=== PATIENT | female | born 1985 ===

== ENCOUNTER 2016-11-30 17:28 | Emergency (ER) | payer OTHER ==
[~2016-11-30] VITALS: Ht 154.9 cm; Wt 65.3 kg
--- NOTE | 2016-11-30 18:33 | ED NEURO DEFICIT/STROKE ---
History of Present Illness General Chief Complaint: General Adult Stated Complaint: RT SIDED NUMBNESS ?NEW MED RX Source: patient, old records Exam Limitations: no limitations Vital Signs & Intake/Output Vital Signs & Intake/Output Vital Signs Date Time Temp Pulse Resp B/P B/P Pulse O2 O2 Flow FiO2 Mean Ox Delivery Rate 12/01 2123 96.8 69 18 118/78 99 Room Air 11/30 1948 95.6 71 16 110/74 99 Room Air 11/30 1730 98.2 87 18 127/89 98 Room Air ED Intake and Output 12/01 0000 11/30 1200 Intake Total 0 Output Total Balance 0 Intake, Oral 0 Patient 144 lb Weight Weight Reported by Patient Measurement Method Allergies Coded Allergies: amoxicillin (Severe, SWELLING ALL OVER BODY 11/30/16) hazelnut (THROAT CLOSES 11/30/16) tree nut (THROAT CLOSES 11/30/16) Reconcile Medications Cholecalciferol (Vitamin D3) (Vitamin D) (Unknown Strength) CAPSULE (Unknown Dose) PO DAILY SUPPLEMENT (Reported) Ferrous Sulfate (IRON) 325 MG (65 MG IRON) CAPSULE.ER 1 TAB PO DAILY SUPPLEMENT (Reported) Multivitamin (Multi-Day Vitamins) 1 EACH TABLET 1 TAB PO DAILY SUPPLEMENT ( Reported) Oxycodone HCl 5 MG TABLET 1 TAB PO DAILY CHRONIC PAIN (Reported) Pregabalin (Lyrica) 75 MG CAPSULE 1 CAP PO BID NERVE PAIN (Reported) Zolpidem Tartrate (Ambien) 10 MG TABLET 1 TAB PO QPM SLEEP (Reported) Triage Note: 31 YO FEMALE TO TRIAGE C/O ?MEDICATION REACTION TO LYRICA. STATES SHE STARTED TAKING LYRICA ON 11/23 AND AFTER HER FIRST DOSE SHE WAS OFF BALANCE. PT WENT TO [facility] OFFICE TODAY TO BE MAYBE TAKEN OFF AND HER DR SENT HER HERE FOR EVAL. 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 STATES SHE HAS BEEN HAVING BLURRY VISION ON/OFF. STATES SHE HAS TINGLING IN R ARM AND R LEG. NEUROS INTACT. R HAND GRASPS SLIGHTLY WEAKER THEN LEFT. PT HX OF BELLS PALSY AND GETS B12 INJECTIONS FROM HER DOCTOR EVERY 2 WEEKS. PT ALERT AND ORIENTED X4. PT ALSO STATES THAT HER SIG OTHER HAD TO WAKE HER UP THE OTHER NIGHT OUT OF SLEEP BECAUSE SHE "WAS FLOPPING AROUND". Triage Nurses Notes Reviewed? yes Onset: Abrupt Duration: day(s):, constant, getting worse Timing: recent history Severity: moderate, severe : No Patient currently breastfeeds: No HPI: 31-year-old female comes into emergency room for multiple complaints. Patient reports that she is experiencing abnormalities and she was started on Lyrica recently. She reports that she's been increasingly lethargic and sleepy. She reports that she feels like her coordination and gait is off. 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 She reports that she has chronic weakness to her right upper extremity and right lower leg that is very mild compared to the left. She reports that this is been going on for almost a year. She has an appointment with a neurologist symptoms in March. She was sent in here for further evaluation by her primary care doctor. She reports that she also recently discontinued oxycodone. She' was on it for pain management. Her last dose was last Tuesday. She denies any nausea vomiting chills diarrhea. Past History Travel History Traveled to [place] past 21 day No Medical History Any Pertinent Medical History? 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 No Review of Systems Review of Systems Constitutional: Reports: no symptoms. EENTM: Reports: no symptoms. Respiratory: Reports: no symptoms. Cardiovascular: Reports: no symptoms. GI: Reports: no symptoms. Genitourinary: Reports: no symptoms. Musculoskeletal: Reports: no symptoms. Skin: Reports: no symptoms. Neurological/Psychological: Reports: see HPI. Hematologic/Endocrine: Reports: no symptoms. Immunologic/Allergic: Reports: no symptoms. All Other Systems: Reviewed and Negative Physical Exam Physical Exam General Appearance: well developed/nourished, no apparent distress, alert Head: atraumatic, normal appearance Eyes: Bilateral: normal appearance, PERRL, EOMI. Ears, Nose, Throat: normal ENT inspection, moist mucous membrane, hearing grossly normal Neck: normal inspection, full range of motion Respiratory: normal breath sounds, chest non-tender, no respiratory distress Cardiovascular: regular rate/rhythm Back: normal inspection Extremities: normal range of motion Psychiatric: awake, alert, oriented x 3 Cranial Nerves: normal hearing, normal speech, PERRL, cn 2-12 intact Coordination/Gait: normal finger to nose, normal gait Motor/Sensory: weak motor strength RUE (4/5) Skin: intact, normal color Core Measures CVA/TIA Diagnosis: No Severe Sepsis Present: No Septic Shock Present: No Progress Differential Diagnosis: acute glaucoma, Solis's Palsy, drug intoxication, electrolyte imbalance, encephalitis, hypoglycemia, intracranial Hem., intracranial mass/tumor, meningitis, migraine RODRIGEUZ, seizure disorder, stroke, subarachnoid Hem., vertebrobasilar insuff. Plan of Care: Orders Procedure Date/time Status Add-on Test (ER Only) 11/30 1949 Active HUMAN BETA HCG SCREEN 11/30 1842 Complete URINE 11/30 1830 Complete URINALYSIS 11/30 1830 Complete LYME TITRE 11/30 1830 Active LIPASE 11/30 1830 Complete COMPREHENSIVE METABOLIC PANEL 11/30 1830 Complete CBC WITHOUT DIFFERENTIAL 11/30 1830 Complete AMYLASE 11/30 1830 Complete EKG 11/30 1830 Active Laboratory Tests 11/30/161958: Urine Color STRAW, Urine Clarity CLEAR, Urine pH 6.0, Ur Specific [place] 1.010, Urine Protein NEG, Urine Ketones NEG, Urine Nitrite NEG, Urine Bilirubin NEG, Urine Urobilinogen 0.2, Ur Leukocyte Esterase NEG, Ur Microscopic EXAM NOT REQUIRED, Urine Hemoglobin NEG, Urine Glucose NEG, Urine Test NEGATIVE 11/30/161842: Anion Gap 11, Estimated GFR > 60, BUN/Creatinine Ratio 13.3, Glucose 81, Calcium 9.9, Total Bilirubin 0.5, AST 27, ALT 42, Alkaline Phosphatase 53, Total Protein 7.6, Albumin 4.6, Globulin 3.0, Albumin/Globulin Ratio 1.5, Amylase 70, Lipase 306 H, Total Beta HCG NEGATIVE, CBC w Diff NO MAN DIFF REQ, RBC 5.10, MCV 76.3 L, MCH 24.8 L, RDW 12.7, MPV 7.9, Gran % 48.9, Lymphocytes % 44.1, Monocytes % 5.7, Eosinophils % 0.7, Basophils % 0.6, Absolute Granulocytes 3.7, Absolute Lymphocytes 3.3, Absolute Monocytes 0.4, Absolute Eosinophils 0.1, Absolute Basophils 0, PUBS MCHC 32.5 L, Lyme Disease Antibody Pending Diagnostic Imaging: Viewed by Me: CT Scan. Discussed w/RAD: CT Scan. Radiology Impression: SERVICE DATE: 11/30/16 EXAM TYPE: CAT - CT HEAD WO IV CONTRAST EXAMINATION: CT HEAD WITHOUT CONTRAST CLINICAL INFORMATION: Weakness. Tired. Coordination off. COMPARISON: None. TECHNIQUE: Contiguous axial imaging was performed from the skull base to vertex without intravenous contrast. DLP: 544 mGy-cm. FINDINGS: There is no evidence of acute intracranial hemorrhage or territorial infarction. No abnormal mass effect or midline shift is seen. Gonzales to white matter differentiation is well preserved. No extra-axial fluid collections are identified. No hydrocephalus. No significant volume loss. There is no abnormal attenuation within the brain parenchyma. The osseous structures and soft tissues are normal. Mild opacification of the ethmoid air cells. The mastoid air cells and visualized portions of the paranasal sinuses are otherwise well aerated. IMPRESSION: No acute intracranial pathology. DICTATED BY: MARLEEN FLANNERY,CHRISTELLE DATE/TIME DICTATED:11/30/162041 Initial ED EKG: normal intervals, normal p-waves, normal QRS complex, normal sinus rhythm, rate (69) Departure Departure Disposition: HOME OR SELF CARE Condition: Stable Clinical Impression Primary Impression: Lethargy Secondary Impressions: Coordination disorder, Medication side effect Referrals: UNKNOWN (PCP/Family) Additional Instructions: Discontinue taking the Lyrica. Follow back up with your primary care doctor. Return if any concerns worsening symptoms. Please go over all results of today's visit with your primary care doctor. Contact your primary care doctor to let them know you were here in the emergency room. There may be nonspecific findings which may not be related to your visit today here in the emergency room but may require further evaluation and chronic monitoring by your primary care doctor. If you had a laceration today the chance of foreign body always remains. You should follow-up with your primary care doctor for recheck in 3-5 days for a wound check. If you had an x-ray done there is a chance that a fracture could have been missed on initial read and you should follow-up with your primary care doctor for repeat x-rays if symptoms persist. If your blood pressure was elevated here in the emergency room please have rechecked by her primary care doctor within the next 48 hours by your primary care doctor. If you were prescribed a narcotic here in the emergency room or any type of controlled substances you're not allowed to drive while taking this medication or operate any type of heavy machinery. Narcotics can make you feel lightheaded dizziness nausea and can cause constipation. You may need to peanut picker a stool softener. Thank you for choosing [facility] emergency room. Please return to the emergency room immediately if you have any other concerns worsening of symptoms. Departure Forms: Customer Survey General Discharge Information Comments Patient clinically looks well. Reevaluated multiple times. No evidence of stroke. 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 Her weakness is chronic on the right side she reports. She is walking around the room. Patient keeps asking when she can go home. CT scan shows no acute findings. Lyme titer sent off. Labs within normal limits. Patient recommended to follow up back with her primary care doctor. She is alert and oriented. No evidence of cerebellar infarct. No nausea vomiting. Patient understands and agrees with plan of care.
[2016-11-30] MEDS ORDERED: LYRICA75 M1 PO (18:46)
[2016-11-30] MEDS ORDERED: VITAMIN D2000 UNIT PO (18:46)
[2016-11-30] MEDS ORDERED: OXYCODONE HCL5 M1 PO (18:46)
[2016-11-30] MEDS ORDERED: AMBIEN10 M1 PO (18:46)
[2016-11-30] MEDS ORDERED: IRON325 M2 PO (18:47)
[2016-11-30] MEDS ORDERED: MULTI-DAY VITA1 EACH PO (18:47)
[2016-11-30 18:55] LABS: ABSOLUTE BASOPHIL COUNT 0 /CUMM (0.0-0.2); ABSOLUTE EOSINOPHIL COUNT 0.1 /CUMM (0.0-0.7); ABSOLUTE GRANULOCYTE CT 3.7 /CUMM (1.4-6.5); ABSOLUTE LYMPH COUNT 3.3 /CUMM (1.2-3.4); ABSOLUTE MONOCYTE COUNT 0.4 /CUMM (0.10-0.60); BASOPHIL % 0.6 % (0.0-2.0); EOSINOPHIL % 0.7 % (0-5); GRANULOCYTE % 48.9 % (42.2-75.2); HEMATOCRIT 38.9 % (37-47); MEAN CORPUSCULAR HGB 24.8 PG (27.0-31.0); MEAN CORPUSCULAR HGB CONC 32.5 G/DL (33.0-37.0); MEAN CORPUSCULAR VOLUME 76.3 FL (81.0-99.0); MEAN PLATELET VOLUME 7.9 FL (7.4-10.4); PLATELET COUNT 307 /CUMM (130-400); RBC DISTRIBUTION WIDTH 12.7 % (11.5-14.5); WHITE BLOOD CELL COUNT 7.5 /CUMM (4.8-10.8)
--- NOTE | 2016-11-30 20:50 | CT SCAN REPORT ---
EXAMINATION: CT HEAD WITHOUT CONTRAST CLINICAL INFORMATION: Weakness. Tired. Coordination off. COMPARISON: None. TECHNIQUE: Contiguous axial imaging was performed from the skull base to vertex without intravenous contrast. DLP: 544 mGy-cm. FINDINGS: There is no evidence of acute intracranial hemorrhage or territorial infarction. No abnormal mass effect or midline shift is seen. Gonzales to white matter differentiation is well preserved. No extra-axial fluid collections are identified. No hydrocephalus. No significant volume loss. There is no abnormal attenuation within the brain parenchyma. The osseous structures and soft tissues are normal. Mild opacification of the ethmoid air cells. The mastoid air cells and visualized portions of the paranasal sinuses are otherwise well aerated. IMPRESSION: No acute intracranial pathology.
[2016-11-30 21:24] VITALS: BP 118/78
== END 2016-11-30 21:25 ==
LOC: ERH 17:28
PROVIDERS: Physician Assistant Medical
DX: R53.83 Other fatigue (principal); R27.8 Other lack of coordination; T42.75XA Adverse effect of unspecified antiepileptic and sedative-hypnotic drugs, initial encounter
CPT/HCPCS: 86618; 81003; 81025; 93005; 93010